=== PATIENT | male | born 1975 | race Caucasian/White ===

== ENCOUNTER 2017-01-05 19:12 | Emergency (ER) | payer OTHER, MEDICAID ==
[2017-01-05 19:26] VITALS: BP 130/95; RESP 16; TEMP 99.1
--- NOTE | 2017-01-05 19:44 | EDPHY ---
HPI/HX/ROS/PE/MDM Narrative: CHIEF COMPLAINT: Medical clearance HPI: This patient is a 41 year old male presenting for medical clearance prior to transport to long term. He has used methamphetamine today. He also complains of a blister on the plantar aspect of his right foot. He denies fever, chest pain, shortness of breath, or other associated symptoms. REVIEW OF SYSTEMS: Aside from elements discussed in the HPI, a comprehensive 10-point review of systems was reviewed and is negative. PMH: Back pain, head injury. SOCIAL HISTORY: Lives in [place]. svp chief marketing officer at bedside. PHYSICAL EXAM: General:Patient is alert, in no acute distress. He is hyperactive, consistent with meth use. He is handcuffed. ENT:Eyes are normal to inspection. ENT inspection normal. Neck: Normal inspection. Full range of motion. Respiratory:No respiratory distress. Breath sounds normal bilaterally. Cardiovascular: Tachycardic rate. Strong peripheral pulses. Normal cap refill. Abdomen:The abdomen is nontender to palpation. There are no peritoneal signs. There are normal bowel sounds. Back: Normal to inspection. No tenderness to palpation. Skin: Normal color. No rash. Warm and dry. Extremities: Large blister on plantar aspect of right foot. No purulence, no cellulitis. Full range of motion. Neuro: Oriented x3. Normal motor function. Normal sensory function. Portions of this note were transcribed by an ED scribe. I personally performed the history, physical exam, and medical decision making; and confirm the accuracy of the information in the transcribed note. ED Course: 19:40 Patient is medically cleared for long term. MDM: This patient presents with a non-infected foot wound and signs and symptoms or recent meth use. I do not think he is experiencing a medical emergency at this time. General Time Seen by Provider: 01/05/17 19:34 Initial Vital Signs: Initial Vital Signs Temperature (C) 37.3 C 01/05/17 19:19 Heart Rate 131 H 01/05/17 19:19 Respiratory Rate 16 01/05/17 19:19 Blood Pressure 130/95 H 01/05/17 19:19 O2 Sat (%) 97 01/05/17 19:19 O2 Delivery Mode Room Air Allergies/Adverse Reactions: Penicillins Allergy (Verified 01/05/17 19:19) Home Medications: Medication Instructions Recorded NK [No Known Home Meds] 01/05/17 Departure - Departure Disposition: Home, Routine, Self-Care Clinical Impression: Methamphetamine abuse, Blister of foot, right Condition: Good Instructions: Methamphetamine Abuse (ED), Blister (ED) Additional Instructions: The patient is medically cleared for long term. Referrals: Patient,NotPresent [Primary Care Provider] - As per Instructions Report Scribed for: Leon Woo Report Scribed by: Xena Craft Date of Report: 01/05/17 Time of Report: 19:41
[2017-01-05 19:59] VITALS: PULSE 86; O2SAT 96
== END 2017-01-05 20:00 | disposition home or self-care (01) ==
DX: R23.8 Other skin changes (principal); F15.10 Other stimulant abuse, uncomplicated